=== PATIENT | female | born 1960 ===

== ENCOUNTER 2020-07-30 05:30 | Day surgery (SDC) | payer OTHER ==
[2020-07-30] MEDS ORDERED: PERCOCET 5-3251 EACH PO (08:43)
[2020-07-30] MEDS ORDERED: KETO10TA2 PO (08:44)
[2020-07-30] MEDS ORDERED: DERMOPLAST FIRS78 GM TOP (08:45)
== END 2020-07-30 15:00 | disposition home or self-care (01) ==
LOC: CIR.AMB 05:30
PROVIDERS: ATTEND Surgery
DX: C21.1 Malignant neoplasm of anal canal (principal); K60.1 Chronic anal fissure; Z20.828 Contact with and (suspected) exposure to other viral communicable diseases

== ENCOUNTER 2021-05-29 07:43 | Day surgery (SDC) | payer OTHER ==
[~2021-05-29 07:43] MED LIST: DERMOPLAST FIRS78 GM TOP; KETO10TA2 PO; PERCOCET 5-3251 EACH PO
[2021-05-29] MEDS ORDERED: RECTICARE30 GM TOP (15:53)
[2021-05-29] MEDS ORDERED: KETO10TA2 PO (15:54)
[2021-05-29] MEDS ORDERED: ULTRAM50 MG PO (15:54)
== END 2021-05-29 18:55 | disposition home or self-care (01) ==
LOC: CIR.AMB 07:43
PROVIDERS: ATTEND Surgery
DX: K62.6 Ulcer of anus and rectum (principal); Z20.822 Contact with and (suspected) exposure to COVID-19

== ENCOUNTER 2022-09-15 05:55 | Day surgery (SDC) | payer OTHER ==
[~2022-09-15 05:55] MED LIST changes: +MULTIVITA PO; +RECTICARE30 GM TOP; +ULTRAM50 MG PO
[2022-09-15] MEDS ORDERED: TRAM1TAB98 PO (08:10)
== END 2022-09-15 10:25 | disposition home or self-care (01) ==
LOC: CIR.AMB 05:55
PROVIDERS: ATTEND Surgery
DX: Z85.048 Personal history of other malignant neoplasm of rectum, rectosigmoid junction, and anus (principal); K62.7 Radiation proctitis; R15.2 Fecal urgency; K62.6 Ulcer of anus and rectum; Z88.0 Allergy status to penicillin; Z20.822 Contact with and (suspected) exposure to COVID-19